=== PATIENT | male | born 1955 | race African-American/Black ===

== ENCOUNTER 2024-05-13 10:47 | Outpatient (CLI) | payer OTHER, MEDICARE | END 2024-05-13 10:48 | disposition home or self-care (01) | LOC: CSHRAD 10:47 | PROVIDERS: ATTEND Family Medicine Sports Medicine | DX: M54.50 Low back pain, unspecified (principal); K21.9 Gastro-esophageal reflux disease without esophagitis; M47.816 Spondylosis without myelopathy or radiculopathy, lumbar region | CPT/HCPCS: 71046; 72100 ==

== ENCOUNTER 2024-06-27 14:07 | Outpatient (CLI) | payer MEDICARE | END 2024-06-27 14:08 | disposition home or self-care (01) | LOC: CSHRAD 14:07 | PROVIDERS: ATTEND Family Medicine Sports Medicine | DX: M79.622 Pain in left upper arm (principal) ==